=== PATIENT | female | born 1960 | race Asian ===

== ENCOUNTER 2022-01-16 11:38 | Outpatient (CLI) | payer OTHER, SELFPAY ==
--- NOTE | 2022-01-16 11:50 | XR_ITS ---
WS: [id number] Exam: XR cervical spine 3V* [id number] Date/Time of Exam: 01/16/2022 12:00 PM Reason For Exam: bilateral arm pain No acute fracture or dislocation. Disc spaces are relatively well preserved. Mild spondylosis from C5 to C7. Mild facet DJD at all levels. The odontoid is intact. Normal paraspinal soft tissues. XR/XR cervical spine 3V* [id number] IMPRESSION: 1. Mild degenerative changes. No fracture or malalignment.
== END 2022-01-16 11:39 | disposition home or self-care (01) ==
LOC: RAD 11:42
PROVIDERS: PCP Family Medicine; Visit Provider Family Medicine
DX: M54.12 Radiculopathy, cervical region (principal)
CPT/HCPCS: 72040

== ENCOUNTER 2022-02-21 13:55 | Outpatient (RCR) | payer OTHER, SELFPAY | END 2022-02-25 23:59 | disposition home or self-care (01) | LOC: SPT 13:55 | PROVIDERS: PCP Family Medicine; Referring Provider Family Medicine; Visit Provider Family Medicine | DX: M54.12 Radiculopathy, cervical region (principal); M25.512 Pain in left shoulder; G89.29 Other chronic pain | CPT/HCPCS: 97161 ==

== ENCOUNTER → 2022-09-09 11:13 | Outpatient (BNVA) | payer OTHER, SELFPAY | PROVIDERS: PCP Family Medicine; Visit Provider Family Medicine | DX: L30.9 Dermatitis, unspecified (principal); M54.12 Radiculopathy, cervical region; Z12.31 Encounter for screening mammogram for malignant neoplasm of breast; Z13.6 Encounter for screening for cardiovascular disorders | CPT/HCPCS: 80053; 80061; 84443; 85025 ==

== ENCOUNTER → 2022-09-10 10:05 | Outpatient (BNVA) | payer OTHER, SELFPAY | PROVIDERS: PCP Family Medicine; Visit Provider Family Medicine | DX: L30.9 Dermatitis, unspecified (principal); M54.12 Radiculopathy, cervical region; Z12.31 Encounter for screening mammogram for malignant neoplasm of breast; Z13.6 Encounter for screening for cardiovascular disorders; D64.9 Anemia, unspecified | CPT/HCPCS: 82728; 83550 ==

== ENCOUNTER 2022-10-24 09:48 | Outpatient (CLI) | payer OTHER, SELFPAY ==
--- NOTE | 2022-10-24 09:58 | MM_ITS ---
WS: [id number] VIEWS: MLO and CC views both breasts. 3D digital tomosynthesis is also included in this exam. No priors. Findings: There was no sign of mass, architectural distortion or suspicious calcification in either breast. Sc attered fibroglandular densities... MM/[place] [id number] Impression: BI-RADS: 2-Benign FOLLOW-UP: 1 Year Follow-up This mammogram was also analyzed by the Computer Aided Detection System R2 Imag e Soda Room Operator.
== END 2022-10-24 09:49 | disposition home or self-care (01) ==
PROVIDERS: PCP Family Medicine; Visit Provider Family Medicine
DX: Z12.31 Encounter for screening mammogram for malignant neoplasm of breast (principal)
CPT/HCPCS: 77063; 77067

== ENCOUNTER 2023-08-15 10:52 | Emergency (ER) | payer OTHER, SELFPAY ==
[2023-08-15 11:04] VITALS: BP 152/83; PULSE 76; RESP 15; TEMP 36.5; O2SAT 99; BMI 26.2
[2023-08-15 12:44] VITALS: BP 141/75; PULSE 89; RESP 16; O2SAT 100; O2SAT 99
[2023-08-15] MEDS: ketorolac 60 mg/2 mL INJ IM (13:30)
[2023-08-15] MEDS: orphenadrine 30 mg/mL Inj 2 mL 60 MG IM (13:31)
[2023-08-15] MEDS: dexamethasone 10 mg/mL INJ IM (13:32)
[2023-08-15 13:50] VITALS: BP 112/79; PULSE 92; RESP 16; O2SAT 96
[2023-08-15 13:51] VITALS: BP 112/79; PULSE 92; RESP 16; O2SAT 96
--- NOTE | 2023-08-15 16:05 | W.ED.BACK ---
HPI - Back Pain/Injury General: Chief Complaint: Back Pain/Injury Stated Complaint: back pain Time Seen by Provider: 08/15/23 12:45 Source: patient Mode of arrival: ambulatory History of Present Illness: 62-year-old female presents emergency room with complaints of low back pain earlier in the week she been doing some exercise including a lift the next morning she began back pain is progressively worsened throughout the week she has not had any red flags symptoms. She does have a little bit of anterior thigh lower radicular leg radiculopathy no bowel or bladder dysfunction. She has still been able to ambulate but is been very uncomfortable. She can be traveling soon and wanted to get something for it to try to salvage her trip MD elicited complaint: back pain Pertinent past history: prior back pain Onset (ago): minute(s) Severity: mild Quality: sharp Location: lumbar spine Radiation: none Exacerbating factors: none Context: while lifting Associated symptoms: Deny abdominal pain, arthralgias, chills, change in bowel habits, difficulty walking, dysuria, fatigue, fecal incontinence, fever(s), hematuria, myalgias, nausea, numbness, syncope, tingling/numbness/burning, urinary frequency, urinary urgency, vomiting or weakness Treatments prior to arrival: NSAIDS Review of Systems Const: Denies: fever(s), chills or fatigue Card: Denies: syncope Resp: Denies: dyspnea GI: Denies: abdominal pain, nausea, vomiting, fecal incontinence or change in bowel habits : Denies: dysuria, urinary urgency or hematuria Musc: Denies: neck pain or back pain Skin/Breast: Denies: rash Neuro: Denies: difficulty walking [facility] ED PFSH: Medical History Eczema 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 Thalassemia trait Surgical History S/P lumbar fusion L4-L5 Family History Mother Diabetes Hypertension Social History Smoking and tobacco/nicotine status: never used tobacco/nicotine Alcohol intake: never Substance/Drug Use: never Adopted: No Caregiver/support person: No Lives independently: Yes Household members: spouse Housing: House Marital status: Number of children: 3 Number of grandchildren: 2 Highest education level completed: Some College, No Degree service: No Current occupational status: unemployed and retired Physical Exam Const: GENERAL APPEARANCE: cooperative and comfortable ORIENTATION/CONSCIOUSNESS: Yes awake, Yes oriented to person, Yes oriented to place and Yes oriented to time HENMT: COMMON NORMALS: normocephalic, atraumatic and hearing grossly normal bilaterally HEAD & SCALP: normocephalic and atraumatic Resp: COMMON NORMALS: normal respiratory effort, No retractions, No use of accessory muscles and clear to auscultation bilaterally AUSCULTATION: clear to auscultation bilaterally Cardio: COMMON NORMALS: regular rate, regular rhythm and No murmurs present (Cardio) RATE: regular rate RHYTHM: regular rhythm GI: COMMON NORMALS: Soft to palpation and No hepatosplenomegaly present AUSCULTATION: Yes normoactive bowel sounds PALPATION: Yes Soft to palpation, No Tenderness to palpation present (GI), No Guarding due to palpation present (GI) and Yes No hepatosplenomegaly present Back/Pelvis: OTHER: Deep tendon reflexes +2/4 patellar tendon straight leg raising is negative dorsum plantarflexion 5 of 5 sensation lower extremities intact and normal Extremity: COMMON NORMALS: normal to inspection, capillary refill normal, no clubbing, cyanosis or edema, no calf tenderness and no pedal edema Neuro: SENSORIUM/ORIENTATION: Yes oriented to person, Yes oriented to place and Yes oriented to time Skin: COMMON NORMALS: no rashes or lesions noted GENERAL SKIN EXAM: no rashes or lesions noted Course Vital Signs: Vital signs: Vital Signs Temperature 97.7 F 08/15/23 11:04 Pulse Rate 92 08/15/23 13:51 Respiratory Rate 16 08/15/23 13:51 Blood Pressure 112/79 08/15/23 13:51 Pulse Oximetry 96 08/15/23 13:51 Oxygen Delivery Me thod Room Air 08/15/23 12:44 MDM - Back Pain/Injury Medical Decision Making Lumbar strain from exercise. No red flag symptoms at this time. Patient given steroids muscle relaxer and anti-inflammatory in the emergency room should have little improvement will discharge home on steroid taper muscle relaxer and diclofenac and follow-up with primary care if not improving Differential Diagnosis Likely lumbar radiculopathy, sciatica and strain of lumbar region Medical Records I reviewed the patient's medical records. No radiology studies performed this visit Discharge Plan Discharge Patient Disposition: Home Clinical Impression: Strain of lumbar region Condition: Stable Prescriptions: New tizanidine 4 mg tablet 4 mg PO Q6H PRN (Reason: muscle spasticity) Qty: 20 0RF Rx Instructions: do not exceed 3 doses per 24 hrs prednisone 20 mg tablet 20 mg PO TID Qty: 15 0RF Rx Instructions: 1 p.o. 3 times daily x3 days, 1 p.o. twice daily x2 days, 1 p.o. daily x2 days diclofenac sodium 75 mg tablet,delayed release (DR/EC) 75 mg PO Q12H PRN (Reason: pain) Qty: 20 0RF No Action betamethasone valerate 0.1 % cream 1 applic topical BID PRN (Reason: skin irritation) Qty: 45 3RF gabapentin 300 mg capsule See Rx Instructions .ROUTE .COMPLEX Qty: 90 5RF Dose Instruction: TAKE 1 CAPSULE BY MOUTH THREE TIMES A DAY Rx Instructions: TAKE 1 CAPSULE BY MOUTH THREE TIMES A DAY Discharge Orders: Discharge ED (Routine); Ordered 08/15/23 Ordered By: Gurwinder Carranza Referrals: Silvana Solis DO [Primary Care Provider] - Patient Instructions: Low Back Strain (ED), Lower Back Exercises (ED), Opioid Safety, Pain Management Activity Restrictions/Additional Instructions: Thank you for choosing [facility] for your healthcare needs today. Please realize this is an emergency room and that we are providing you with a medical screening exam and this may not be complete and all inclusive of all the testing and or work up that you may need to determine your ailment or severity of your illness. It is very important that you follow up as instructed or that you return to the Emergency Department should you have concerns or if your condition changes or worsens in any way. You are seen today for strain in your lower back. Based on your history and exam it appears to be mostly musculoskeletal. He was given steroids anti-inflammatories and muscle relaxer in the emergency room. You are given a prescription for a steroid taper which you can begin tomorrow. You are also given muscle relaxers and anti-inflammatories which you can begin 8 hours after your discharge from the ER. If not improving follow-up with your primary care doctor. Coding Level of Care Code ED Recorder [employer] for Aly Trotter
== END 2023-08-15 14:00 | disposition home or self-care (01) ==
PROVIDERS: Emergency Provider Family Medicine; PCP Family Medicine
DX: S39.012A Strain of muscle, fascia and tendon of lower back, initial encounter (principal); X50.0XXA Overexertion from strenuous movement or load, initial encounter; Y93.B9 Activity, other involving muscle strengthening exercises
CPT/HCPCS: 96372; 99284; J1100; J1885; J2360

== ENCOUNTER 2023-09-04 14:41 | Outpatient (CLI) | payer OTHER, SELFPAY ==
--- NOTE | 2023-09-04 15:00 | XR_ITS ---
WS: [id number] SCREENING DEXA SCAN [address] CLINICAL INFORMATION: postmenopausal COMPARISON: None. FINDINGS: The LEFT forearm bone mineral density measures 0.692. This corresponds to a T score score of -2.1 and Z score of -1.1. Left femoral neck bone mineral density measures 0.864 g/cm2. This corresponds to a T score of -1.1 an d Z score of -0.1. Right femoral neck bone mineral density measures 0.855 g/cm2. This corresponds to a T score -1.2of an d Z score of -0.2. Mean femoral neck bone mineral density measures 0.859 g/cm2. This corresponds to a T score of -1.2 an d Z score of -0.1. IMPRESSION: Osteopenia LEFT forearm. Osteopenia femoral necks.. Patient's FRAX calculated 10 year probability for major osteoporotic fracture is 5.9% and osteoporoti c hip fracture is 0.9%.
== END 2023-09-04 14:42 | disposition home or self-care (01) ==
LOC: RAD 14:41
PROVIDERS: PCP Family Medicine; Visit Provider Family Medicine
DX: Z78.0 Asymptomatic menopausal state (principal); M85.832 Other specified disorders of bone density and structure, left forearm
CPT/HCPCS: 77080

== ENCOUNTER 2023-09-08 10:37 | Outpatient (CLI) | payer OTHER, SELFPAY ==
--- NOTE | 2023-09-08 10:44 | XR_ITS ---
WS: [id number] Exam: XR lumbar spine 2-3V* [id number] Date/Time of Exam: 09/08/2023 10:58 AM Reason For Exam: low back pain No fracture or dislocation. There is posterior fusion at the L4-5 level with pedicle screws and poste rior rods. Intervening disc spacer at this level. Mild dextroscoliosis. Disc calcification at L2-3. N o sign of hardware failure or malposition. IMPRESSION: 1. Stable appearing spinal fusion at the L4-5 disc level. 2. Minimal degenerative changes and mild dextroscoliosis.
== END 2023-09-08 10:38 | disposition home or self-care (01) ==
LOC: RAD 10:38
PROVIDERS: PCP Family Medicine; Visit Provider Family Medicine
DX: M47.896 Other spondylosis, lumbar region (principal); M54.50 Low back pain, unspecified
CPT/HCPCS: 72100

== ENCOUNTER → 2023-12-25 10:55 | Outpatient (BNVA) | payer OTHER, SELFPAY | PROVIDERS: PCP Family Medicine; Visit Provider Family Medicine Adult Medicine | DX: Z90.5 Acquired absence of kidney (principal); L30.8 Other specified dermatitis; K64.5 Perianal venous thrombosis; Z78.0 Asymptomatic menopausal state | CPT/HCPCS: 80053; 80061; 84443; 85025; 86140 ==

== ENCOUNTER 2024-02-12 10:29 | Outpatient (RCR) | payer OTHER, SELFPAY | END 2024-02-18 23:59 | disposition home or self-care (01) | LOC: SPT 10:29 | PROVIDERS: PCP Family Medicine Adult Medicine; Visit Provider Family Medicine Adult Medicine | DX: M54.50 Low back pain, unspecified (principal) | CPT/HCPCS: 97110; 97161 ==

== ENCOUNTER 2025-01-09 09:37 | Outpatient (CLI) | payer OTHER, SELFPAY ==
[2025-01-09 10:16] LABS: Basophils # 0.1 10^3/uL (0.0-0.1); Basophils % 1.1 %; Eosinophils # 0.2 10^3/uL (0.0-0.8); Eosinophils % 3.8 %; Hematocrit 41.3 % (36-47); Lymphocytes # 1.9 10^3/uL (0.8-4.8); Lymphocytes % 41.2 %; Mean Corpuscular Hemoglobin 23.1 pg (27-33); Mean Corpuscular Volume 74.7 fl (85-98); Mean Platelet Volume 9.3 fL (7.4-10.4); Monocytes # 0.4 10^3/uL (0.2-0.9); Monocytes % 8.9 %; Neutrophils # 2.02 10^3/uL (1.8-7.7); Neutrophils % 44.8 %; Nucleated Red Blood Cells % 0 %; Platelet Count 205 10^3/cmm (157-399); Red Blood Count 5.53 10^6/uL (3.85-5.65); Red Cell Distribution Width 14.6 % (12.1-15.1); White Blood Count 4.51 10^3/uL (3.29-11.43)
[2025-01-09 10:34] LABS: Estmated Average Glucose 128; Hemoglobin A1C 6.1 % (4.0-6.0)
[2025-01-09 10:45] LABS: Alanine Aminotransferase 15 U/L (0-33); Albumin Level 4.4 g/dL (3.5-5.2); Alkaline Phosphatase 62 U/L (35-105); Aspartate Amino Transferase 20 U/L (0-32); Blood Urea Nitrogen 15 mg/dL (8-23); Calcium 8.9 mg/dL (8.5-10.5); Carbon Dioxide 25 mmol/L (22-29); Chloride 105 mmol/L (98-107); Chol HDL Ratio 4.14 mg/dL (0.0-4.40); Cholesterol 244 mg/dL (0-200); Free T4 Free Thyroxine 1.13 ng/dL (0.82-1.77); Glomerular Filtration Rate 56.2 mL/min (90-130); Glucose 103 mg/dL (65-115); HDL Cholesterol 59 mg/dL (60-100); LDL Cholesterol Calculated 163 mg/dL (50-129); LDL HDL Ratio 2.76 RATIO (0.00-3.22); Osmolality Calculated 291 mOsm/kg (285-295); Sodium 140 mmol/L (136-145); Thyroid Stimulating Hormone 0.85 uIU/mL (0.27-4.20); Total Bilirubin 0.4 mg/dL (0.15-1.2); Total Protein 7.4 g/dL (6.6-8.7); Triglycerides 108 mg/dL (0-150)
== END 2025-01-09 09:38 | disposition home or self-care (01) ==
PROVIDERS: PCP Family Medicine; Visit Provider Family Medicine
DX: N18.31 Chronic kidney disease, stage 3a (principal); E78.5 Hyperlipidemia, unspecified
CPT/HCPCS: 36415; 80053; 80061; 83036; 84439; 84443; 85025